=== PATIENT | female | born 1965 | race Caucasian/White ===

== ENCOUNTER → 2019-01-03 | Outpatient (CLI) | payer BC ==
--- NOTE | 2019-01-03 12:25 | Diagnostic Imaging Report ---
PROCEDURE: US abdomen complete. TECHNIQUE: Multiple real-time grayscale images were obtained over the abdomen in various projections. INDICATION: Right upper quadrant pain. FINDINGS: The gallbladder appeared normal. No stone or sludge. There is no intra- or extrahepatic bile duct dilatation. The unobstructed right kidney appeared normal. There is no ascites. The visualized portions of the pancreas unremarkable. The visualized portions of aorta nonaneurysmal. Right kidney 12.5 cm, the left kidney is 12.1 cm. No solid or cystic renal mass. No hydronephrosis. We note a cyst in the right hepatic lobe with few curvilinear nonvascularized internal partial septations, the lesion measured 4.7 cm maximal and showed no suspicious characteristic. IMPRESSION: Partially septated right hepatic lobe cyst, no solid or suspicious liver mass. No biliary abnormality or ascites. Unobstructed kidneys appeared normal. Dictated by: Dictated on workstation # [id number]
== END ==
LOC: RAD FS 08:36
PROVIDERS: ATTEND Pediatrics
DX: K76.89 Other specified diseases of liver (principal); R10.11 Right upper quadrant pain
CPT/HCPCS: 76700

== ENCOUNTER → 2019-01-08 | Outpatient (CLI) | payer BC ==
[~2019-01-08] MED LIST: ACET325T49 PO; IBUP-1780 PO; NORE1PAT7 TD; SUMA100T2 PO
== END | disposition home or self-care (01) ==
LOC: PREOP 05:52
PROVIDERS: ATTEND Pediatrics
DX: Z01.818 Encounter for other preprocedural examination (principal)

== ENCOUNTER 2019-01-09 08:00 | Day surgery (SDC) | payer BC ==
[~2019-01-09] VITALS: Ht 170.2 cm; Wt 77.1 kg
--- OUTSIDE RECORDS SUMMARY | 2019-01-09 08:03 | XMS REPORT | Continuity of Care Document ---
Author Organization Unknown Address Unknown Allergies There is no data. Medications There is no data. Problems There is no data. Procedures There is no data. Results Test Result Range SUREPATH PAP RFX HPV mRNA E6/E7 - 11/26/18 12:09 CLINICAL INFORMATION: NRG LMP: NRG PREV. PAP: NRG PREV. 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 Visit Date/Time Discharge Status Pt. Type Provider Facility Loc./Unit Complaint [id number] 11/26/2018 09:00:00 11/26/2018 23:59:59 CLS Outpatient JORI PHILLIPS [facility] [id number] 11/26/2018 09:00:00 Document Registration [id number] 01/03/2019 08:36:00 01/03/2019 23:59:59 CLS Outpatient CHERISE IBARRA, JAIME [facility] RAD FS RUQ ABD PAIN
[2019-01-09] MEDS: NS IV 500 ML 500 ML IV PRN ×2 (08:15→08:50)
[2019-01-09] MEDS ORDERED: fentaNYL INJECTION 100 MCG/2 ML AMP IVP ONE (08:15)
[2019-01-09] MEDS ORDERED: MIDAZOLAM 2 MG/2 ML (VERSED) VIAL IVP ONE (08:15)
[2019-01-09] MEDS ORDERED: NS IV 500 ML 500 ML ONE (08:16)
--- NOTE | 2019-01-09 08:24 | Progress Note-Pre Operative ---
Pre-Operative Progress Note H&P Reviewed The H&P was reviewed, patient examined and no changes noted. Date Seen by Provider: January 09, 2019 Time Seen by Provider: 08:24 Date H&P Reviewed: January 09, 2019 Time H&P Reviewed: 08:24 Pre-Operative Diagnosis: abdominal pain and diarrhea JAIME LUONG MD January 09, 2019 08:24
[2019-01-09 08:35] VITALS: BP 141/93
[2019-01-09] MEDS ORDERED: MIDAZOLAM 2 MG/2 ML (VERSED) VIAL ONE ×4 (08:43)
[2019-01-09] MEDS ORDERED: fentaNYL INJECTION 100 MCG/2 ML AMP ONE ×2 (08:43)
[2019-01-09] MEDS ORDERED: NORE1PAT7 TD (08:44)
[2019-01-09] MEDS ORDERED: ACET325T49 PO (08:44)
[2019-01-09] MEDS ORDERED: SUMA100T2 PO (08:44)
[2019-01-09] MEDS ORDERED: IBUP-1780 PO (08:44)
--- NOTE | 2019-01-09 09:13 | Endoscopy Procedure Report ---
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 Indications for Procedure: abd pain and diarrhea Procedure Details: Informed consent was obtained, the risks, benefits and alternatives to the procedure were explained to the patient. The Cristiane Savage, a 53 yr old female, was brought to to surgery area, sedated with 8 mg of Versed and 200 mg of fetanyl. She was placed in the left lateral decubitus position. Under direct visualization the scope was passed easily to the cecum. Cecum is identified by landmarks. Scope was carefully withdrawn. Findings: Ascending Colon: none Transverse Colon: none Descending/Sigmoid: none Rectum: none Estimated Blood Loss: 0mL Specimens: none Complications: None; patient tolerated the procedure well. Final Diagnosis: essentially normal colonoscopy to mid ascending colon and unable to cannulate terminal cecum JAIME LUONG MD January 09, 2019 09:13
[2019-01-09 09:30] VITALS: BP 120/76
[2019-01-09 10:00] VITALS: BP 92/76
--- NOTE | 2019-01-09 10:10 | NUR ---
VOMITED SMALL AMOUNT CL EMESIS. Addendum: 01/09/19 at 1023 by MAY COX RN Amended: Links added.
[2019-01-09 10:45] VITALS: BP 92/76
== END 2019-01-09 10:45 | disposition home or self-care (01) ==
LOC: ENDO 08:00
PROVIDERS: ATTEND Pediatrics
DX: R10.11 Right upper quadrant pain (principal); R14.0 Abdominal distension (gaseous)
CPT/HCPCS: 84703

== ENCOUNTER → 2022-12-05 | Outpatient (CLI) | payer BC ==
--- NOTE | 2022-12-05 11:37 | Diagnostic Imaging Report ---
PROCEDURE: US Non-ob pelvis comp/trans. TECHNIQUE: Multiple realtime grayscale images were obtained of the pelvis in various projections endovaginally. Transabdominal imaging was also performed. INDICATION: Dysfunctional uterine bleeding. COMPARISON: None Available FINDINGS: Transabdominal: The uterus and adnexa have a unremarkable transabdominal appearance. Transvaginal images were obtained for additional characterization. Transvaginal: The uterus is retroverted and measures 7.6 x 5.6 x 4.8 cm. The endometrial stripe measures 0.4 cm and has a normal appearance. Focal slightly hypoechoic lesions are seen in the right side of the uterus, the largest measuring 2.9 x 1.5 x 1.8 cm. The right ovary is well visualized measuring 3.6 x 1.5 x 1.4 cm and demonstrating normal color Doppler flow. The left ovary is not visualized due to overlapping bowel gas. No adnexal masses. No free fluid is seen in the pelvis. IMPRESSION: 1. Two likely uterine fibroids in the right aspect of the uterus. 2. Unremarkable appearance of the right ovary. The left ovary is not well seen due to overlapping bowel gas. No adnexal mass or free fluid. Dictated by: Dictated on workstation # [id number]
== END ==
LOC: RAD FS 07:46
PROVIDERS: ATTEND Surgery
DX: N93.8 Other specified abnormal uterine and vaginal bleeding (principal)
CPT/HCPCS: 76830; 76856